=== PATIENT | male | born 1985 | race Caucasian/White ===

== ENCOUNTER 2020-11-16 20:26 | Emergency (ER) | payer OTHER ==
[~2020-11-16] VITALS: Ht 180.3 cm; Wt 113.4 kg
[2020-11-16] MEDS ORDERED: LANTUS SUBQ (20:34)
[2020-11-16 21:12] LABS: ABSOLUTE BASOPHILS 0.1 thou/uL (0.0-0.2); ABSOLUTE EOSINOPHILS 0.1 thou/uL (0.0-0.7); ABSOLUTE LYMPHOCYTES 2.3 thou/uL (0.8-5.3); ABSOLUTE MONOCYTES 0.4 thou/uL (0.0-1.2); ABSOLUTE NEUTROPHILS 3.2 thou/uL (1.6-8.1); BASOPHILS 1.3 %; EOSINOPHILS 1.3 %; HEMATOCRIT 39.6 % (42.0-52.0); LYMPHOCYTES 38.8 %; MCH 29.6 pg (26.0-34.0); MCHC 35.3 g/dL (28.0-37.0); MCV 83.7 fL (80.0-100.0); MONOCYTES 6.1 %; MPV 9.5 fl. (7.2-11.1); NUCLEATED RBCS 0 /100WBC; PLATELET COUNT* 167 thou/uL (150-400); POLYS 52.5 %; RBC 4.73 mil/uL (4.50-6.00); RDW-CV 13.8 % (10.5-14.5)
[2020-11-16 21:17] LABS: CALCIUM 8.7 mg/dL (8.5-10.1); POTASSIUM 3.6 mmol/L (3.5-5.1)
[2020-11-16 21:22] LABS: ALBUMIN 3.7 g/dL (3.4-5.0); APTT 20.3 Seconds (25.0-31.3); PROTIME 10.3 Seconds (9.20-11.50); TOTAL BILIRUBIN 0.4 mg/dL (<0.1-1.0); TOTAL PROTEIN 6.8 g/dL (6.4-8.2)
[2020-11-16 21:48] LABS: URINE BILIRUBIN NEGATIVE (Negative); URINE BLOOD NEGATIVE (Negative); URINE CLARITY CLEAR; URINE COLOR YELLOW; URINE GLUCOSE-RANDOM 3+ (Negative); URINE KETONES NEGATIVE (Negative); URINE LEUKOCYTES-REFLEX NEGATIVE (Negative); URINE NITRITE-REFLEX NEGATIVE (Negative); URINE PROTEIN NEGATIVE (Negative); URINE SPECIFIC GRAVITY <= 1.005 (1.005-1.030); URINE UROBILINOGEN 0.2 E.U./dl (0.2-1.0)
[2020-11-16 21:57] LABS: AMP/METHAMP Negative (Negative); BARBITURATES Negative (Negative); BENZODIAZEPINES Negative (Negative); COCAINE Negative (Negative); METHADONE Negative (Negative); OPIATES Negative (Negative); PCP Negative (Negative); THC Negative (Negative)
[2020-11-16] MEDS ORDERED: MELOXICAM15 MG PO (23:42)
[2020-11-16] MEDS ORDERED: HUMALOG100 UNIT/1 SUBQ (23:42)
[2020-11-16] MEDS ORDERED: MEDROLDOSEPACK PO (23:42)
[2020-11-17 00:11] VITALS: BP 139/69
--- NOTE | 2020-11-17 11:12 | EKG ---
[place] [address] ELECTROCARDIOGRAM REPORT Name: MICHELLE PRETTY Room: [facility]#: [id number] Admission: 11/16/20 Attend Phys: Discharge: 11/17/20 Date of : 81 Date of Service: 11/16/202046 Report #: [id number] THIS REPORT FOR: //name// [facility] ED Test Date: 2020-11-16 Test Time: 20:47:52 Pat Name: MICHELLE PRETTY Department: Room: Gender: Medical Review Specialist: : [id number] Requested By: Samanta Barrios Order Number: [id number] MD: Serafin Tucker Measurements Intervals [place] Rate: 89 P: 38 HI: 165 QRS: -6 QRSD: 99 T: -11 QT: 349 QTc: 425 Interpretive Statements Sinus rhythm Left ventricular hypertrophy Anterior Q waves, possibly due to LVH Borderline T abnormalities, inferior leads Compared to ECG 03/07/2008 13:57:12 Left ventricular hypertrophy now present Q waves now present Sinus arrhythmia no longer present Right-axis deviation no longer present Possible ischemia no longer present T-wave abnormality still present Electronically Signed On 11-17-2020 11:12:24 CDT by Serafin Tucker [email or web address] <ELECTRONICALLY SIGNED> By: Serafin Tucker MD, [facility] 11/17/20 1112 46 46 Serafin Tucker MD, [facility] /EPI
== END 2020-11-17 00:11 | disposition home or self-care (01) ==
LOC: M.ERS 20:26
PROVIDERS: Personal Emergency Response Attendant
DX: R20.0 Anesthesia of skin (principal); R20.2 Paresthesia of skin; I10 Essential (primary) hypertension; E11.9 Type 2 diabetes mellitus without complications; Z79.4 Long term (current) use of insulin